=== PATIENT | female | born 1995 | race Caucasian/White ===

== ENCOUNTER → 2020-01-02 16:00 | Outpatient (BNVA) | payer MEDICAID, SELFPAY | PROVIDERS: Visit Provider Advanced Practice Midwife | DX: N94.10 Unspecified dyspareunia (principal) | CPT/HCPCS: 99203 ==

== ENCOUNTER 2020-01-02 19:24 | Outpatient (REF) | payer MEDICAID, SELFPAY ==
[2020-01-03 10:00] LABS: CT PCR NOT DETECTED (Not Detect.); NG PCR NOT DETECTED (Not Detect.)
[2020-01-03 12:34] LABS: BV Int Neg Control Negative (Negative); BV Int Pos Control Positive (Positive)
== END 2020-01-02 19:25 | disposition home or self-care (01) ==
LOC: HO.LNP 19:24
PROVIDERS: Visit Provider Advanced Practice Midwife
DX: N94.10 Unspecified dyspareunia (principal)
CPT/HCPCS: 87480; 87491; 87510; 87591; 87660

== ENCOUNTER 2020-01-13 16:26 | Outpatient (REF) | payer MEDICAID, SELFPAY ==
--- NOTE | 2020-01-13 16:30 | US_ITS ---
EXAMINATION: ULTRASOUND PELVIC, COMPLETE CLINICAL INFORMATION: Dyspareunia COMPARISON: None. TECHNIQUE: Transabdominal and transvaginal imaging was performed. Transvaginal imaging was performed for further evaluation of the endometrium and adnexa. FINDINGS: The uterus is of normal size and echogenicity measuring 6.4 x 3.1 x 4.3 cm and is retroverted A regular homogeneous endometrium is identified measuring 1.1 cm. Both ovaries are of normal size and echogenicity. The right ovary measures 3.5 x 2.4 x 3.3 cm for a volume of 14.5 mL. The left ovary measures 3.3 x 2 x 2 cm for a volume of 6.9 mL. There is no pelvic free fluid. IMPRESSION: Unremarkable pelvic ultrasound.
== END 2020-01-13 16:27 | disposition home or self-care (01) ==
LOC: HO.US 16:26
PROVIDERS: PCP Family Medicine; Visit Provider Advanced Practice Midwife
DX: N94.10 Unspecified dyspareunia (principal)
CPT/HCPCS: 76830; 76856

== ENCOUNTER → 2020-01-29 10:33 | Outpatient (BNVA) | payer MEDICAID, SELFPAY | PROVIDERS: PCP Family Medicine; Visit Provider Advanced Practice Midwife | DX: N94.10 Unspecified dyspareunia (principal); K80.80 Other cholelithiasis without obstruction; Z88.0 Allergy status to penicillin | CPT/HCPCS: 99212 ==

== ENCOUNTER 2020-03-11 18:19 | Emergency (ER) | payer MEDICAID, SELFPAY ==
--- NOTE | 2020-03-11 | XR_ITS ---
EXAMINATION: LEFT KNEE 3 VIEWS CLINICAL INFORMATION: Left knee pain. COMPARISON: None. TECHNIQUE: AP, lateral, oblique views of the left knee were obtained. FINDINGS: There are no fractures or dislocations. There is no knee joint effusion. There is no significant soft tissue swelling. XR/XR knee LT 4V IMPRESSION: Unremarkable left knee radiographs.
[2020-03-11 18:24] VITALS: BP 128/71; PULSE 90; RESP 16; TEMP 36.9; O2SAT 99; BMI 26.6
--- NOTE | 2020-03-11 19:50 | ED.EXTPRO ---
HPI - Extremity Problem General Chief complaint: Extremity Problem Stated complaint: knee pain Time Seen by Provider: 03/11/20 19:11 Source: patient Mode of arrival: ambulatory Limitations: no limitations History of Present Illness HPI Narrative: Left knee pain for the past couple weeks initially started after doing ADLs and question twist her knee got improved and came back again it with certain activities. States only hurts sometimes in the medial and lateral aspect of knee. She denies any lower extremity swelling, rash or any other injury. Location: left Radiation: distal Relieving factors: immobilization Exacerbating factors: walking and palpation Associated symptoms: denies other symptoms Related Data Previous Rx's Medication Instructions Recorded ibuprofen 800 mg PO Q8H PRN #15 tab 03/11/20 Allergies Allergy/AdvReac Type Severity Reaction Status Date / Time Penicillins [PENICILLINS] Allergy Intermediate TURNS RED Verified 01/29/20 10:28 PER PT MOM Review of Systems Review of Systems: Constitutional: No Weight loss, No Fever, No Chills, No Night Sweats, No Fatigue, No Malaise ENT/Mouth: No Hearing loss, No Ear Pain, No Nasal Congestion, No Sinus Pain, No Hoarseness, No sore throat, No Rhinorrhea, No Swallowing Difficulty Eyes: No Eye Pain, No Swelling, No Redness, No Foreign Body, No Discharge, No Vision Changes Cardiovascular: No Chest Pain, No SOB, No Dyspnea on Exertion, No Orthopnea, No Edema, No Palpitations Respiratory: No Cough, No Sputum, No Wheezing, No Smoke Exposure, No Dyspnea Gastrointestinal: No abdominal Pain Genitourinary: No Dysuria Musculoskeletal: No joint pain, No Myalgias, No Joint Swelling, n oteds in HPI Skin: No Skin Lesions, No rash Neuro: No Weakness, No Numbness, No Paresthesias, No Loss of Consciousness, No Dizziness, No Headache Psych:No Social Issues Heme/Lymph: No Bruising, No Bleeding,No Lymphadenopathy Endocrine: No Polyuria, No Polydipsia Yes all other systems are reviewed and are negative [facility] Past Medical History Medical History (Updated 03/12/20 @ 00:17 by Luis Eduardo Ventura) Dyspareunia in female Gall stones Surgical History Hx of abdominoplasty Social History Social History (Reviewed 01/29/20 @ 12:59 by NAYELI Dover Alcohol intake: never Smoking Status: Never smoker Smoked in Last 30 Days: No Substance Use Type: Marijuana Advance Directives: No Advance Directives Information Provided: Yes Gender identity: female Physical Exam Vital Signs: Vital Signs: Last Vital Signs Temp 98.2 F 03/11/20 19:51 Pulse 83 03/11/20 19:51 Resp 16 03/11/20 19:51 BP 116/70 03/11/20 19:51 Pulse Ox 97 03/11/20 19:51 Body Mass Index 26.6 Reviewed Const: General: cooperative and healthy appearing; No acute distress or intoxicated appearing Nutritional Appearance: average body habitus Orientation/consciousness: patient oriented x3 HENMT: Head: Yes normal to inspection Ears: hearing grossly normal bilaterally Chest: Chest palpation & inspection: normal inspection of the chest Resp: Effort & Inspection: normal respiratory effort Cardio: Jugular venous distension: no JVD : General: Yes no CVA tenderness Back/Spine/Pelvis: Back: no CVA tenderness Skin: General skin exam: no rashes or lesions noted Neuro: General: patient oriented x3 Extrem: General: Yes normal to inspection Right lower extremity: no edema Left lower extremity: normal to inspection, full ROM, normal capillary refill and knee (Slight him permission over the medial aspect of the knee. Negative squeeze) Details: normal to inspection and tenderness; no cyanosis, no edema and joint enlargement noted Discharge Plan Discharge Clinical Impression: Knee strain Patient Disposition: Home, Self-Care Instructions: Knee Sprain (ED) Additional Instructions: Ice, elevate, Lupillo wrap for comfort Follow-up as instructed Return if any concerns or worsening symptoms Thank you Prescriptions: New ibuprofen 800 mg tablet 800 mg PO Q8H PRN (Reason: pain) Qty: 15 RF: 0 Referrals: Maria L Galvez MD [Primary Care Provider] - 2 weeks Interventions: ED Discharge Assessment Last Done: 03/11/20 20:41 Discharge Date/Time: 03/11/20 20:42
[2020-03-11 19:51] VITALS: BP 116/70; PULSE 83; RESP 16; TEMP 36.8; O2SAT 97
== END 2020-03-11 20:42 | disposition home or self-care (01) ==
PROVIDERS: Emergency Provider Internal Medicine; PCP Family Medicine
DX: S86.912A Strain of unspecified muscle(s) and tendon(s) at lower leg level, left leg, initial encounter (principal); X50.1XXA Overexertion from prolonged static or awkward postures, initial encounter; Y93.9 Activity, unspecified; Y92.019 Unspecified place in single-family (private) house as the place of occurrence of the external cause; Y99.9 Unspecified external cause status
CPT/HCPCS: 73564; 99284

== ENCOUNTER 2021-10-13 10:05 | Outpatient (REF) | payer MEDICAID, SELFPAY ==
[2021-10-14 04:58] LABS: CT PCR NOT DETECTED (Not Detect.)
[2021-10-14 04:59] LABS: NG PCR NOT DETECTED (Not Detect.)
[2021-10-14 09:22] LABS: BV Int Neg Control Negative (Negative); BV Int Pos Control Positive (Positive)
== END 2021-10-13 10:06 | disposition home or self-care (01) ==
LOC: HO.LAB 10:05
PROVIDERS: Visit Provider Advanced Practice Midwife
DX: Z01.419 Encounter for gynecological examination (general) (routine) without abnormal findings (principal); Z11.3 Encounter for screening for infections with a predominantly sexual mode of transmission
CPT/HCPCS: 87480; 87491; 87510; 87591; 87660; 88142

== ENCOUNTER 2022-11-07 14:26 | Outpatient (REF) | payer MEDICAID, SELFPAY ==
[2022-11-07 16:16] LABS: MANUAL DIFF FLAG NO
[2022-11-07 16:21] LABS: Basophils Absolute Auto 0.1 X10*3/uL (0.0-0.2); Basophils Percent Auto 0.7 % (0-2); Eosinophils Percent Auto 0.4 % (0-4); Hematocrit 39.5 % (37.0-47.0); Hemoglobin 13.4 g/dl (12.0-16.0); Imm Gran Abs Auto 0.03 X10*3/uL (0.00-0.03); Imm Gran Pct Auto 0.4 % (0.0-0.4); Lymphocytes Absolute Auto 2.1 X10*3/uL (1.2-4.9); Lymphocytes Percent Auto 28.3 % (20-40); Mean Corpuscular HGB Conc 33.9 g/dl (31.0-35.0); Mean Corpuscular Hemoglobin 31.6 pg (27.0-33.0); Mean Corpuscular Volume 93.2 fL (80.0-98.0); Mean Platelet Volume 9.4 fL (9.4-12.3); Monocytes Absolute Auto 0.7 X10*3/uL (0.1-1.2); Neutrophils Absolute Auto 4.4 x10*3/uL (2.0-8.3); Neutrophils Percent Auto 61.2 % (45-73); Platelet Count 284 X10*3/uL (160-400); Red Blood Count 4.24 X10*6/uL (4.20-5.50); Red Cell Distribution Width 12.2 % (11.0-16.0); White Blood Count 7.3 X10*3/uL (4.8-10.8)
[2022-11-07 16:33] LABS: Estimated Average Glucose 85 mg/dL; Hemoglobin A1c % 4.6 %
[2022-11-07 16:59] LABS: Alanine Aminotransferase 17 U/L (0-31); Albumin Level 4.1 g/dL (3.5-5.0); Alkaline Phosphatase 60 U/L (39-117); Anion Gap 9 (12-20); Aspartate Amino Transferase 17 U/L (5-31); Bilirubin Total 0.5 mg/dL (0.0-1.0); Blood Urea Nitrogen 9 mg/dL (9-16); Calcium 9.5 mg/dL (8.4-10.2); Carbon Dioxide 26 mmol/L (22-29); Chloride 110 mmol/L (96-108); Estimated Glomerular Filt Rate > 60; Glucose Random 94 mg/dL (60-115); Potassium 3.9 mmol/L (3.3-5.1); Sodium 141 mmol/L (135-145); Total Protein 6.6 g/dL (6.5-8.0)
[2022-11-07 17:08] LABS: TSH reflex Free T4 1.39 uIU/mL (0.32-4.0); Vitamin D 25-OH Total 34.6 ng/mL (>30)
== END 2022-11-07 14:27 | disposition home or self-care (01) ==
LOC: HO.HHCL 14:26
PROVIDERS: Visit Provider Family Medicine
DX: E55.9 Vitamin D deficiency, unspecified (principal); Z83.3 Family history of diabetes mellitus
CPT/HCPCS: 36415; 80053; 82306; 83036; 84443; 85025

== ENCOUNTER 2023-07-06 16:03 | Outpatient (REF) | payer MEDICAID, SELFPAY ==
--- NOTE | ~2023-07-06 | XR_ITS ---
EXAMINATION: XR HAND, RIGHT CLINICAL INFORMATION: Right hand pain for a month COMPARISON: None available. TECHNIQUE: PA, lateral, and oblique views of the right hand. FINDINGS: The bones and soft tissues are normal. No fracture. Alignment is anatomic. Joint spaces are maintained. No erosions or soft tissue calcifications. XR/XR hand RT min 3V IMPRESSION: Normal right hand.
== END 2023-07-06 16:04 | disposition home or self-care (01) ==
LOC: HO.HHCX 16:03
PROVIDERS: Visit Provider General Practice
DX: M79.641 Pain in right hand (principal)
CPT/HCPCS: 73130

== ENCOUNTER 2024-01-07 08:39 | Outpatient (REF) | payer MEDICAID, SELFPAY ==
[2024-01-07 11:23] LABS: MANUAL DIFF FLAG NO
[2024-01-07 11:33] LABS: Basophils Percent Auto 0.5 % (0-2); Eosinophils Absolute Auto 0.1 X10*3/uL (0.0-0.4); Eosinophils Percent Auto 1.1 % (0-4); Hemoglobin 13.4 g/dl (12.0-16.0); Imm Gran Abs Auto 0.03 X10*3/uL (0.00-0.03); Imm Gran Pct Auto 0.4 % (0.0-0.4); Lymphocytes Absolute Auto 1.8 X10*3/uL (1.2-4.9); Lymphocytes Percent Auto 21.2 % (20-40); Mean Corpuscular HGB Conc 33.5 g/dl (31.0-35.0); Mean Corpuscular Hemoglobin 30.9 pg (27.0-33.0); Mean Corpuscular Volume 92.4 fL (80.0-98.0); Mean Platelet Volume 9.9 fL (9.4-12.3); Monocytes Absolute Auto 0.9 X10*3/uL (0.1-1.2); Neutrophils Absolute Auto 5.6 x10*3/uL (2.0-8.3); Neutrophils Percent Auto 65.8 % (45-73); Platelet Count 314 X10*3/uL (160-400); Red Blood Count 4.33 X10*6/uL (4.20-5.50); Red Cell Distribution Width 11.9 % (11.0-16.0); White Blood Count 8.5 X10*3/uL (4.8-10.8)
[2024-01-07 12:05] LABS: Alanine Aminotransferase 16 U/L (0-31); Albumin Level 4.3 g/dL (3.5-5.0); Alkaline Phosphatase 63 U/L (39-117); Anion Gap 10 (12-20); Aspartate Amino Transferase 17 U/L (5-31); Bilirubin Total 0.6 mg/dL (0.0-1.0); Blood Urea Nitrogen 11 mg/dL (9-16); Calcium 9.7 mg/dL (8.4-10.2); Carbon Dioxide 25 mmol/L (22-29); Chloride 108 mmol/L (96-108); Estimated Glomerular Filt Rate > 60; Ferritin 32 ng/mL (10-122); Glucose Random 90 mg/dL (60-115); Iron 152 mcg/dL (30-160); Percent Iron Saturation 52 % (15-50); Sodium 139 mmol/L (135-145); TSH reflex Free T4 1.47 uIU/mL (0.32-4.0); Total Iron Binding Capacity 290 mcg/dL (228-428); Total Protein 6.8 g/dL (6.5-8.0); Unsaturated Iron Binding 138 ug/dL
== END 2024-01-07 08:40 | disposition home or self-care (01) ==
LOC: HO.HHCL 08:39
PROVIDERS: Visit Provider Family Medicine
DX: K80.20 Calculus of gallbladder without cholecystitis without obstruction (principal); L65.9 Nonscarring hair loss, unspecified; E55.9 Vitamin D deficiency, unspecified
CPT/HCPCS: 36415; 80053; 82306; 82728; 83540; 84443; 85025

== ENCOUNTER 2024-01-16 09:26 | Outpatient (REF) | payer MEDICAID, SELFPAY ==
--- NOTE | ~2024-01-16 | US_ITS ---
EXAMINATION: US ABDOMEN COMPLETE CLINICAL INFORMATION: Cholelithiasis. COMPARISON: CT abdomen and pelvis 01/03/2019, ultrasound abdomen 01/22/2019. TECHNIQUE: Real-time imaging of the abdominal viscera. FINDINGS: PANCREAS: Normal. ABDOMINAL AORTA: The proximal, mid, and distal segments are normal in caliber. INFERIOR VENA CAVA: Visualized portions are normal. LIVER: Normal. The liver is normal in size. The liver contour is normal. Parenchymal echogenicity is normal. No focal hepatic lesion. There is no intrahepatic biliary duct dilatation seen. GALLBLADDER: The gallbladder is physiologically distended. Multiple mobile gallstones are present. No evidence of gallbladder wall thickening or pericholecystic fluid. COMMON BILE DUCT: Normal in caliber measuring 0.5 cm in diameter. RIGHT KIDNEY: Normal. No hydronephrosis. No renal calculi or focal parenchymal lesions. The kidney measures 10.6 cm in maximum dimension. LEFT KIDNEY: There is a 2 mm echogenic focus seen in the left mid kidney which was not noted previously. This does not shadow and has no twinkle artifact and is not typical of a stone. No hydronephrosis. No renal calculi or focal parenchymal lesions. The kidney measures 10.4 cm in maximum dimension. SPLEEN: Normal. The spleen measures 8.5 cm in maximum dimension. FREE FLUID: None. US/US abdomen complete IMPRESSION: 1. Cholelithiasis without evidence of cholecystitis. 2. A 2 mm echogenic focus left mid kidney. This is not typical of a stone and is probably of no significance. Electronically signed by: Chris Wright MD 02/21/2024 02:02 PM [facility]
== END 2024-01-16 09:27 | disposition home or self-care (01) ==
LOC: HO.US 09:26
PROVIDERS: PCP Family Medicine; Visit Provider Family Medicine
DX: K80.20 Calculus of gallbladder without cholecystitis without obstruction (principal)
CPT/HCPCS: 76700

== ENCOUNTER 2025-03-02 15:58 | Outpatient (REF) | payer MEDICAID, SELFPAY ==
--- OUTSIDE RECORDS SUMMARY | 2025-03-02 18:37 | XMS_ITS | Encounter Summary ---
Author Organization [employer] Address [address] [facility] [address] [place] [address] Care Team Providers Care Reinforcing Steel Machine Operator Name Role Phone Maria L Galvez MD Primary Care Provider [phone] Reason for Visit * Reason Onset Date Comments Nurse Triage 11/13/2023 Encounter Details Date Type Department Care Team (Late st Contact Info) Description 11/13/2023 Telephone [facility] [address] [place], [place] [phone] Maria L Galvez MD [address] [place], [place] [phone] Nurse Triage Social History Tobacco Use Types Packs/Day Years Used Date Smoking Tobacco: Never Smokeless Tobacco: Never Alcohol Use Standard Drinks/Week Comments Never 0 (1 standard drink = 0.6 oz pur e alcohol) Depression Answer Date Recorded Patient Health Questionnaire-9 Score 0 11/07/2022 Housing Stability Answer Date Recorded What is your housing situation today? I have elyssajake millan 02/05/[address] you li ve. Do you have problems with any of the following? None of the above 02/05/2023 Food Insecurity Answer Date Recorded Within the past 12 months, y ou worried that your food would run out before you got money to buy more: Never True 02/05/2023 Within the past 12 months,th e food you bought just didn't last and you didn't have enough money to get more: Never True 08/2022 Transportation Answer Date Recorded In the past 12 months, has l ack of transportation kept you from medical appts, meetings, work or from getting things needed for daily living? No 02/05/2023 Utilities Answer Date Recorded In the past 12 months, has t he electric, gas, oil or water company threatened to shut off services in your home? No 02/05/2023 Depression Answer Date Recorded Patient Health Questionnaire-2 Score 0 11/07/2022 Comments Unknown Sex and Gender Information Value Date Recorded Sex Assigned at Female 01/30/2022 10:22 AM EDT Legal Sex Female 10:22 AM EDT Gender Identity Female 01/30/2022 10:22 AM EDT Sexual Orientation Choose not to disclose 2021 10:22 AM EDT documented as of this encounter Miscellaneous Notes * Telephone Encounter - Belem Hope RN - 11/13/2023 10:17 AM EDT Called pt. She states that she has been trying to get an appt. To check her eyesight. Pt. States that at 4am this am her eyes are hurting and it hurts to blink her eyes. Pt woke up this am and eyes are feeling fine at present. Pt states that this episode of eye pain in both eyes has happened 3-4 times over the past month. Pt. States she had PRK surgery in 2022. Pt. States she needs an eye exam. Pain in eyes when she blinks. Pt. States her eyes hurt so bad in the mornings and feels like a stabbing pain. Pt. States she feels like something has popped in her eyes. No foreign objects. Pt. States that she called her insurance company and then called the places that they suggested and they have no openings. PCP did refer pt. To Ophthalmology on 09/17/23. Pt. States that she did call [facility] but they are not accepting new pt's. Pt. States she is on waiting list for [facility] eye care but she is having eye problems right now and is requesting to be seen sooner from [facility] eye care. Please call pt. From [facility] eye care to let her know where she is on waiting list for eye exam and if she can get sooner appt. Due to eye pain on and off. * Telephone Encounter - Rosaliegabriel Cohen Mary - 11/13/2023 10:02 AM EDT Symptom: Eye Pain - Not From Injury Outcome: Schedule an urgent appointment (within 4 hours) or talk to a nurse or provider soon Reason: Getting worse The caller accepted this outcome Please contact pt @ [phone] documented in this encounter Plan of Treatment Upcoming Encounters Date Type Department Care Team (Late st Contact Info) Description 03/19/2025 10:30 AM EST Office Visit [facility] [address] [place], [place] [phone] Maria L Galvez MD [address] [place], [place] [phone] documented as of this encounter Visit Diagnoses Not on filedocumented in this encounter Additional Health Concerns Assessment Noted Time PHQ-9 Depression Total Score: 0 11/08/19 23 1:42 PM EDT documented as of this encounter Care Teams Reinforcing Steel Machine Operator Relationship Specialty Start Date End Date Maria L Galvez MD [address] [place] [phone] PCP - General Family Medicine 07/05/11 documented as of this encounter
--- OUTSIDE RECORDS SUMMARY | 2025-03-02 18:37 | XMS_ITS | Encounter Summary ---
Author Organization [employer] Address [address] [facility] [address] [place] [address] Care Team Providers Care Core Composer Machine Tender Name Role Phone Maria L Galvez MD Primary Care Provider [phone] Reason for Visit * Reason Onset Date Comments r/s appt 03/21/2023 Encounter Details Date Type Department Care Team (Late st Contact Info) Description 03/21/2023 Telephone [facility] [address] [place], [place] [phone] Maria L Galvez MD [address] [place], [place] [phone] r/s appt Social History Tobacco Use Types Packs/Day Years [...] encounter Miscellaneous Notes * Telephone Encounter - Andrez Babb - 03/21/2023 2:45 PM EST TC from pt calling to R/S appt from 03/22( wt. check, tweak meal plan possible). PCP Dr. Galvez documented in this encounter Plan of Treatment Upcoming Encounters Date Type Department Care Team (Late st Contact Info) Description 03/19/2025 10:30 AM EST Office Visit [facility] [address] [place] [address] Maria L Galvez MD [address] [place] [phone] documented as of this encounter Visit Diagnoses Not on filedocumented in this encounter Additional Health Concerns Assessment Noted Time PHQ-9 Depression Total Score: 0 11/08/19 23 1:42 PM EDT documented as of this encounter Care Teams Core Composer Machine Tender Relationship Specialty Start Date End Date Maria L Galvez MD [address] [place] [phone] PCP - General Family Medicine 07/05/11 documented as of this encounter
--- OUTSIDE RECORDS SUMMARY | 2025-03-02 18:37 | XMS_ITS | Encounter Summary ---
Author Organization [employer] Address [address] [facility] [address] [place] [address] Care Team Providers Care Solid Waste Manager Name Role Phone Maria L Galvez MD Primary Care Provider [phone] Encounter Details Date Type Department Care Team (Late st Contact Info) Description 09/29/2022 Abstract [facility] [address] [place] [address] [phone] Maria L Galvez MD [address] [place] [address] [phone] Social History Tobacco Use Types Packs/Day Years Used Date Smoking Tobacco: Never Assessed Comments Unknown Sex and Gender Information Value Date Recorded Sex Assigned at Female 01/30/2022 10:22 AM EDT Legal Sex Female 10:22 AM EDT Gender Identity Female 01/30/2022 10:22 AM EDT Sexual Orientation Choose not to disclose 2021 10:22 AM EDT documented as of this encounter Plan of Treatment Upcoming Encounters Date Type Department Care Team (Late st Contact Info) Description 03/19/2025 10:30 AM EST Office Visit [facility] [address] [place] [phone] Maria L Galvez MD [address] [place] [address] [phone] documented as of this encounter Procedures Procedure Name Priority Date/Time Associated Diagnosis Comments PAP/HPV Routine 10/13/2021 documented in this encounter Results * Hm Pap Smear (10/13/2021) Pap Negative for intraephithelial lesion or malignancy Negative for intraephithelial lesion or malignancy, Other 10/13/2021 [facility] External Provider HEALTH MAINTENANCE Final Result documented in this encounter Visit Diagnoses Not on filedocumented in this encounter Care Teams Solid Waste Manager Relationship Specialty Start Date End Date Maria L Galvez MD [address] [place] [phone] PCP - General Family Medicine 07/05/11 documented as of this encounter
--- OUTSIDE RECORDS SUMMARY | 2025-03-02 18:37 | XMS_ITS | Clinical Summary ---
Author Organization [employer] Address [address] [place] [address] Care Team Providers Care Tree Expert Name Role Phone Maria L Galvez MD Primary Care Provider [phone] Allergies Active Allergy Reactions Criticality Noted Date Comments Penicillin G Anaphylaxis High 12/07/2023 Medications clindamycin (Cleocin T) 1 % lotion APPLY TO FACE AND BACK TWICE DAILY AFTER WASHING WITH benzoyl peroxide. 3 Active triamcinolone (Nasacort) 55 MCG/ACT nasal inhaler SPRAY 2 SPRAYS IN EACH NOSTRIL EVERY DAY 3 Active Ibuprofen capsule TAKE 4 CAPSULES BY MOUTH EVERY 6 HOURS. MAXIMUM DAILY DOSE IS 16 CAPSULE PER DAILY 4 Active ketoconazole (NIZOral) 2 % shampoo APPLY TO SCALP AND LEAVE ON FOR 5 MINUTES THEN RINSE OFF TWICE A WEEK 4 Active Deep Sea Nasal [place] 0.65 % nasal spray SPRAY 2 SPRAYS IN EACH NOSTRIL 4 TO 6 TIMES DAILY 4 Active Menthol-Methyl Salicylate (Muscle Rub) 10-15 % creamIndication s:Neck muscle spasm Apply 1 Application topically in the morning. 85 g 1 4 Active drospirenone-et hinyl estradiol (Macy, Gianvi) 3-0.02 MG tablet Take 1 tablet by mouth Once per day. 4 Active white petrolatum-mine ral oil (Lacri-Lube) ointment ophthalmic ointment Apply a small amount to both eyes at bedtime 3.5 g 11 4 Active cholecalciferol (Vitamin D-3) 25 MCG tablet TAKE 1 TABLET BY MOUTH EVERY DAY 90 tablet 3 5 Active Ascorbic Acid (vitamin C) 500 MG tablet TAKE 2 TABLETS BY MOUTH ONCE DAILY IN THE MORNING 180 tablet 1 02/23/2025 4:49 PM EST 5 Active triamcinolone (Kenalog) 0.1 % ointment Apply topically 2 times daily. 80 g 1 03/02/2025 4:32 PM EST 5 Active predniSONE (Deltasone) 20 MG tablet Take 2 tablets (40 mg) by mouth Once per day for 3 days. 6 tablet 03/02/2025 4:32 PM EST 5 03/08/20 25 Active loratadine (Claritin) 10 MG tablet Take 1 tablet (10 mg) by mouth Once per day. 90 tablet 3 03/02/2025 4:32 PM EST 5 Active Active Problems Problem Noted Date Diagnosed Date Pruritus 02/23/2025 Assessment & Plan (02/23/2025 5:35 PM EST): - patient states pruritus started first - check bile acid / cholestatic pruritus - restart antihistamine daily - short course of prednisone - avoid scratching / use distraction technique Rash 02/23/2025 Assessment & Plan (02/23/2025 5:34 PM EST): - it seems like pruritus came first - avoid scratching / irritation - 3 days of prednisone due to severe symptoms and rash - apply triamcinolone cream; consider higher potency if inadequate response - use hypoallergenic skin care / cleaning / laundry products - refer to material specialist Hypersensitivity 02/23/2025 Assessment & Plan (02/23/2025 5:37 PM EST): - unknown trigger - RAST for basic panel, and cat - refer to material specialist - short course of systemic steroid - restart antihistamine Hair loss 01/04/2024 Shoulder pain 12/25/2023 Assessment & Plan (12/25/2023 11:45 AM EDT): - patient was referred to PT but has not started - given contact information for PT so that patient can call and schedule Upper back pain 12/25/2023 Assessment & Plan (12/25/2023 11:46 AM EDT): - patient was referred to PT but has not started - given contact information for PT so that patient can call and schedule Vitamin D deficiency 11/10/2022 Assessment & Plan (12/25/2023 11:43 AM EDT): - continue vitamin D supplement and periodic lab Assessment & Plan (11/10/2022 6:59 AM EDT): - continue vitamin D supplement and periodic lab Cholelithiasis 11/10/2022 Assessment & Plan (02/23/2025 5:40 PM EST): - seen by [facility] surgery provider for elective cholecystectomy - scheduled in June 2019, but cancelled due to COVID - has been asymptomatic, currently having pruritus. Will check if related to cholestasis. - will update US Assessment & Plan (12/25/2023 11:43 AM EDT): - seen by [facility] surgery provider for elective cholecystectomy - scheduled in June 2019, but cancelled due to COVID - asymptomatic currently - will update US Assessment & Plan (11/10/2022 7:00 AM EDT): - seen by [facility] surgery provider for elective cholecystectomy - scheduled in June 2019, but cancelled due to COVID - asymptomatic currently - monitoring at this time Overweight 11/09/2022 Acne vulgaris 11/09/2022 Assessment & Plan (12/25/2023 11:44 AM EDT): - seeing Dr. Moon, Society Editor - currently prescribed clindamycin topical and doxycycline oral - continue current treatment plan Assessment & Plan (11/10/2022 7:05 AM EDT): - seeing Dr. Moon, Society Editor - currently prescribed clindamycin topical and doxycycline oral - continue current treatment plan - I don't see any lesion, but pt is dissatisfied. Allergic rhinitis 09/14/2016 Assessment & Plan (12/25/2023 11:44 AM EDT): - continue triamcinolone nasal - recently evaluated by ENT, patient states that she had procedure for her nose, possibly polyp removal, will obtain record Assessment & Plan (11/10/2022 7:04 AM EDT): - continue triamcinolone nasal Encounters Date Type Department Care Team Description 02/23/2025 3:15 PM EST Office Visit [facility] [address] [place], [place] [phone] Maria L Galvez MD Pruritus (Primary Dx); Calculus of gallbladder without cholecystitis without obstruction; Rash; Hypersensitivity, initial encounter 02/23/2025 Travel 02/19/2025 Telephone [facility] [address] [place], [place] [phone] Maria L Galvez MD Nurse Triage 01/22/2025 Refill [facility] [address] [place] [address] Maria L Galvez MD from Last 3 Months Immunizations Immunization Administration Dates Next Due DTaP 11/09/2006, 0,01/24/1997,06/17,03/27/1996,1995 HPV, Quadrivalent 01/22/2013,05/16/2010 Hep A, Adult 07/04/2018 Hep A, ped/adol, 2 dose 05/16/2010 Hep B, Adolescent or Pediatric 01/25/1999,1995,1995 Hep B, adult 01/11/2016,10/15/2015 Hib (HbOC) 01/25/1999,03/27/1996,1995 IPV 10/13/1999, 7,01/26/1996,12/04 Influenza injectable quadriv alent IIV4 with preservative 12/17/2018,03/21/2017 Influenza injectable quadriv alent preservative free 12/13/2021 Influenza, Split (incl. elda fied surface antigen) 01/22/2013,12/13/2011 Influenza, seasonal, injecta ble, preservative free 12/25/2023 MMR 01/24/1997,10/12/1996 Meningococcal MCV4P ACYW-135 07/04/2018,05/16/19 11 Pfizer Covid-19 Vaccine 12+ Bivalent 04/28/2022 Tdap 11/07/2022,01/22/2013 Varicella 01/22/2013,05/16/2010 Family History Medical History Relation Name Comments Diabetes type II Sister Relation Name Status Comments Sister Social History Tobacco Use Types Packs/Day Years Used Date Smoking Tobacco: Never Smokeless Tobacco: Never Tobacco Cessation:Counseling Given: Not Answered Alcohol Use Standard Drinks/Week Comments Never 0 (1 standard drink = 0.6 oz pur e alcohol) Alcohol Answer Date Recorded Frequency of Alcohol Consumption Not on file 12/25/2023 Average Number of Drinks Not on file 024 Frequency of Binge Drinking Not on file 12/02 Score 0 12/25/2023 Depression Answer Date Recorded Patient Health Questionnaire-9 Score 0 12/25/2023 Patient Health Questionnaire-9 Score 0 12/25/2023 Last PHQ-9: Questionnaire Data Not on file 0 12/25/2023 Housing Stability Answer Date Recorded What is your housing situation today? I have elyssa millan 12/25/[address] you li ve. Do you have problems with any of the following? None of the above 12/25/2023 Food Insecurity Answer Date Recorded Within the past 12 months, y ou worried that your food would run out before you got money to buy more: Never True 12/25/2023 Within the past 12 months,th e food you bought just didn't last and you didn't have enough money to get more: Not on file Transportation Answer Date Recorded In the past 12 months, has l ack of transportation kept you from medical appts, meetings, work or from getting things needed for daily living? No 12/25/2023 Utilities Answer Date Recorded In the past 12 months, has t he electric, gas, oil or water company threatened to shut off services in your home? No 12/25/2023 Depression Answer Date Recorded Patient Health Questionnaire-2 Score 0 12/25/2023 Internet Access Answer Date Recorded Internet Access Q1 Yes 12/25/2023 Internet Access Q2 Not on file 12/25/2023 Comments Unknown Sex and Gender Information Value Date Recorded Sex Assigned at Female 01/30/2022 10:22 AM EDT Legal Sex Female 10:22 AM EDT Gender Identity Female 01/30/2022 10:22 AM EDT Sexual Orientation Choose not to disclose 2021 10:22 AM EDT Last Filed Vital Signs Vital Sign Reading Time Taken Comments Blood Pressure 110/60 02/23/2025 3:51 PM EST Pulse 103 02/23/2025 3:51 PM EST Temperature 37 C (98.6 F) 02/23/2025 3:51 PM EST Respiratory Rate 15 02/23/2025 3:51 PM EST Oxygen Saturation 97% 02/23/2025 3:51 PM EST Inhaled Oxygen Concentration - - Weight 73.2 kg (161 lb 6.4 oz) 02/23/2025 3:51 P M EST Height 167.3 cm (5' 5.86 ) 02/23/2025 3:51 PM ES T Body Mass Index 26.16 02/23/2025 3:51 PM EST Plan of Treatment Upcoming Encounters Date Type Department Care Team (Late st Contact Info) Description 03/19/2025 10:30 AM EST Office Visit [facility] MEDICINE [address] [place] [address] Maria L Galvez MD [address] [place] [address] Health Maintenance Due Date Last Done Comments Disability Screening 1995 Alcohol/Substance Use Screening 2007 Family Planning (PISQ) 09/29/2010 SDOH Screening 11/08/2023 11/07/2022 Pap Smear 10/13/2024 10/13/2021 COVID-19 Vaccine ( season) 2024 04/28/2022, 08/30/2021, 08/08/2021 Influenza Vaccine (#1) 2024 , 12/13/2021, 12/17/2018, Additional history exists Depression Screening 12/24/2024 12/25/2023, 12/25/19 24 Tobacco Screening 05/13/2025 05/13/2024 DTaP/Tdap/Td Vaccines (9 - Td or Tdap) 11/07/2032 11/07/2022, 01/22/2013, 11/09/2006, Additional history exists Zoster Vaccines (1 of 2) 09/29/2045 RSV Patients and Patients Aged 60 years or older (1 - 1-dose 75+ series) 09/29/2070 HIB Vaccines Completed 01/25/1999, 03/03, 1995 IPV Vaccines Completed 10/13/1999, 12/01, 01/26/1996, Additional history exists HPV Vaccines Completed 01/22/2013, 05/16/2010 Hepatitis B Vaccines Completed 01/11/2016, 10/15/2015, 01/25/1999, Additional history exists Hepatitis A Vaccines Completed 07/04/2018, 05/16/19 11 Meningococcal Vaccine Aged Out 07/04/2018, 011 No longer eligible based on patient's age to complete this topic HIV Screening Completed 06/16/2020, 04/23/2019 Hepatitis C Screening Completed 06/16/2020, 020 Meningococcal B Vaccine Aged Out No l onger eligible based on patient's age to complete this topic Pneumococcal Vaccine: Pediatrics (0 to 5 Years) and At-Risk Patients (6 to 49) Years Aged Out No longer eligible based on patient's age to complete this topic RSV under 20 months Aged Out No longe r eligible based on patient's age to complete this topic Rotavirus Vaccines Aged Out No longer eligible based on patient's age to complete this topic Procedures Procedure Name Priority Date/Time Associated Diagnosis Comments HM PAP/HPV Routine 10/13/2021 [facility] HISTORICAL HEPATITIS C AB W/REFL TO HCV RNA, QN, PCR Routine 06/16/2020 2:37 PM EDT HIV 1/2 ANTIGEN/ANTIBODY, FOURTH GENERATION W/RFL Routine 06/16/2020 2:37 PM EDT from Last 3 Months or Most Recently Relevant to Health Maintenance Results * Hm Pap Smear (10/13/2021) Pap Negative for intraephithelial lesion or malignancy Negative for intraephithelial lesion or malignancy, Other 10/13/2021 [facility] External Provider HEALTH MAINTENANCE Final Result * HEPATITIS C AB W/REFL TO HCV RNA, QN, PCR (06/16/2020 2:37 PM EDT) HEPATITIS C ANTIBODY NON-REACT MARYLOU NON-REACT MARYLOU [facility] INDEX 0.02 <1.00 [facility] Comment: HCV antibody was non-reactive. There is no laboratory evidence of HCV infection. In most cases, no further action is required. However, if recent HCV exposure is suspected, a test for HCV RNA (test code 34662) is suggested. For additional information please refer to http://[employer]/faq/BZR39r8 (This link is being provided for informational/ educational purposes only.) 06/16/2020 2:37 PM EDT Maria L Galvez MD HISTORICAL/NON ORDERABLE LABS Fi nal Result [facility] [address] * HIV 1/2 ANTIGEN/ANTIBODY,FOURTH GENERATION W/RFL (06/16/2020 2:37 PM EDT) HIV-1/2 ANTIGEN AND ANTIBODIES, 4TH GENERATION W/ REFLEX NON-REACT MARYLOU NON-REACT MARYLOU [facility] Comment: HIV-1 antigen and HIV-1/HIV-2 antibodies were not detected. There is no laboratory evidence of HIV infection. PLEASE NOTE: This information has been disclosed to you from records whose confidentiality may be protected by state law. If your state requires such protection, then the state law prohibits you from making any further disclosure of the information without the specific written consent of the person to whom it pertains, or as otherwise permitted by law. A general authorization for the release of medical or other information is NOT sufficient for this purpose. For additional information please refer to http://[employer]/faq/WLV125 (This link is being provided for informational/ educational purposes only.) The performance of this assay has not been clinically validated in patients less than 2 years old. 06/16/2020 2:37 PM EDT us Maria L Galvez MD LAB BLOOD ORDERABLES Final Resul t [facility] [address] [place] [address], from Last 3 Months or Most Recently Relevant to Health Maintenance Insurance [employer] Care Teams Tree Expert Relationship Specialty Start Date End Date Maria L Galvez MD [address] [place] [phone] PCP - General Family Medicine 07/05/11
--- OUTSIDE RECORDS SUMMARY | 2025-03-02 18:37 | XMS_ITS | Encounter Summary ---
Author Organization [employer] Address [address] [facility] 7t [place] [address] Care Team Providers Care Aircraft Engine Mechanic Overhaul Name Role Phone Maria L Galvez MD Primary Care Provider [phone] Reason for Referral * Consultation (Routine) - Closed Specialty Diagnoses / Procedures Referred By Fabiana tripathi Referred To Contact General Surgery Diagnoses Calculus of gallbladder without cholecystitis without obstruction Maria L Galvez MD [address] [place] [address] Phone: tel: fax: [facility] General Surgery [address] [place] [phone] Phone: tel: fax: Referral ID Status Reason Start Date Expiration Date V isits Requested Visits Authorized [id number] Closed Specialty Services Required 04/04/2024 04/04/2025 12 12 Encounter Details Date Type Department Care Team (Late st Contact Info) Description 04/04/2024 Orders Only [facility] MEDICINE [address] [place] [address] [phone] Maria L Galvez MD [address] [place] [phone] Calculus of gallbladder without cholecystitis without obstruction (Primary Dx) Social History Tobacco Use Types Packs/Day Years [...] Description 03/19/2025 10:30 AM EST Office Visit [facility] [address] [place] [address] Maria L Galvez MD [address] [place], [place] [phone] Scheduled Referrals Name Type Priority Associated Diagnoses Orde r Schedule Referral to General Surgery Outpatient Referral Routine Calculus of gallbladder without cholecystitis without obstruction Expected: 04/04/2024 (Approximate), Expires: 04/04/2025 documented as of this encounter Visit Diagnoses Diagnosis Calculus of gallbladder without cholecystitis without obstruction- Primary documented in this encounter Additional Health Concerns Assessment Noted Time PHQ-9 Depression Total Score: 0 12/25/19 24 11:10 AM EDT documented as of this encounter Care Teams Aircraft Engine Mechanic Overhaul Relationship Specialty Start Date End Date Maria L Galvez MD [address] [place] [address] PCP - General Family Medicine 07/05/11 documented as of this encounter
--- OUTSIDE RECORDS SUMMARY | 2025-03-02 18:37 | XMS_ITS | Encounter Summary ---
Author Organization [employer] Address [address] [facility] 7t [place] [address] Care Team Providers Care Perforator Name Role Phone Maria L Galvez MD Primary Care Provider [phone] Reason for Referral * Consultation (Routine) - Closed Specialty Diagnoses / Procedures Referred By Fabiana tripathi Referred To Contact Ophthalmology Diagnoses Visual impairment Maria L Galvez MD [address] [place] [address] Phone: tel: fax: Referral ID Status Reason Start Date Expiration Date V isits Requested Visits Authorized [id number] Closed Specialty Services Required 09/17/2023 09/16/2024 1 1 Encounter Details Date Type Department Care Team (Late st Contact Info) Description 09/17/2023 Orders Only [facility] [address] [place], [place] [phone] Maria L Galvez MD [address] [place], [place] [phone] Visual impairment (Primary Dx) Social History Tobacco Use Types Packs/Day Years Used Date Smoking Tobacco: Never Smokeless Tobacco: Never Alcohol Use Standard Drinks/Week Comments Never 0 (1 standard drink = 0.6 oz pur e alcohol) Depression Answer Date Recorded Patient Health Questionnaire-9 Score 0 11/07/2022 Housing Stability Answer Date Recorded What is your housing situation today? I have elyssa millan 02/05/[address] you [...] Description 03/19/2025 10:30 AM EST Office Visit [facility] MED[facility]INE [address] [place] [phone] Maria L Galvez MD [address] [place] [address] Scheduled Referrals Name Type Priority Associated Diagnoses Order Schedule Referral to Ophthalmology Outpatient Referral Routine Visual impairment Expected: 09/17/2023 (Approximate), Expires: 09/16/2024 documented as of this encounter Visit Diagnoses Diagnosis Visual impairment- Primary Unspecified visual loss documented in this encounter Additional Health Concerns Assessment Noted Time PHQ-9 Depression Total Score: 0 11/08/19 23 1:42 PM EDT documented as of this encounter Care Teams Perforator Relationship Specialty Start Date End Date Maria L Galvez MD [address] [place] [address] PCP - General Family Medicine 07/05/11 documented as of this encounter
--- OUTSIDE RECORDS SUMMARY | 2025-03-02 18:37 | XMS_ITS | Encounter Summary ---
Author Organization [employer] Address [address] 7[address] [place] [address] Care Team Providers Care Pediatric Cns Name Role Phone Maria L Galvez MD Primary Care Provider [phone] Encounter Details Date Type Department Care Team (Late st Contact Info) Description 11/13/2023 Orders Only [facility] [address] [place], [place] [phone] Maria L Galvez MD [address] [place], [place] [phone] Poor vision (Primary Dx) Social History Tobacco Use Types [...] Description 03/19/2025 10:30 AM EST Office Visit [facility] [address] [place] [phone] Maria L Galvez MD [address] [place] [phone] documented as of this encounter Visit Diagnoses Diagnosis Poor vision- Primary Unspecified visual loss documented in this encounter Additional Health Concerns Assessment Noted Time PHQ-9 Depression Total Score: 0 11/08/19 23 1:42 PM EDT documented as of this encounter Care Teams Pediatric Cns Relationship Specialty Start Date End Date Maria L Galvez MD [address] [place] [phone] PCP - General Family Medicine 07/05/11 documented as of this encounter
--- OUTSIDE RECORDS SUMMARY | 2025-03-02 18:37 | XMS_ITS | Encounter Summary ---
Author Organization [employer] Address [address] [facility] 7t [place] [address] Care Team Providers Care Supply Requirements Officer Name Role Phone Maria L Galvez MD Primary Care Provider [phone] Reason for Referral * Consultation (Routine) - Closed Specialty Diagnoses / Procedures Referred By aFbiana tripathi Referred To Contact Nutrition Diagnoses Overweight Maria L Galvez MD [address] [place] [address] Phone: tel: fax: Referral ID Status Reason Start Date Expiration Date V isits Requested Visits Authorized [id number] Closed Consult and Treat 01/21/2024 01/20/2025 1 1 Encounter Details Date Type Department Care Team (Late st Contact Info) Description 01/21/2024 Orders Only [facility] [address] [place], [place] [phone] Maria L Galvez MD [address] [place], [place] [phone] Overweight (Primary Dx) Social History Tobacco Use Types [...] Upcoming Encounters Date Type Department Care Team ([facility] st Contact Info) Description 03/19/2025 10:30 AM EST Office Visit [facility] [address] [place] [address] Maria L Galvez MD [address] [place] [address] Scheduled Referrals Name Type Priority Associated Diagnoses Orde r Schedule Referral to Nutrition Therapy Outpatient Referral Routine Overweight Expected: 01/21/2024 (Approximate), Expires: 01/20/2025 documented as of this encounter Visit Diagnoses Diagnosis Overweight- Primary documented in this encounter Additional Health Concerns Assessment Noted Time PHQ-9 Depression Total Score: 0 12/25/19 11:10 AM EDT documented as of this encounter Care Teams Supply Requirements Officer Relationship Specialty Start Date End Date Maria L Galvez MD [address] [place] [address] PCP - General Family Medicine 07/05/11 documented as of this encounter
--- OUTSIDE RECORDS SUMMARY | 2025-03-02 18:37 | XMS_ITS | Encounter Summary ---
Author Organization [employer] Address [address] [facility] 7t [place] [address] Care Team Providers Care Electro Mechanical Engineer Name Role Phone Maria L Galvez MD Primary Care Provider [phone] Reason for Visit * Reason Onset Date Comments Appointment Request 09/23/2024 Encounter Details Date Type Department Care Team ([facility] st Contact Info) Description 09/23/2024 Telephone [facility] MEDICINE [address] [place], [place] [phone] Maria L Galvez MD [address] [place], [place] [phone] Appointment Request Social History Tobacco Use Types Packs/Day Years [...] * Telephone Encounter - Andrez Babb - 09/23/2024 9:07 AM EDT Tc from pt requesting call back to reschedule nutrition appt. Please contact pt at [phone]. (Somali Speaker) documented in this encounter Plan of Treatment Upcoming Encounters Date Type Department Care Team (Late st Contact Info) Description 03/19/2025 10:30 AM EST Office Visit [facility] [address] [place] [address] Maria L Galvez MD [address] [place] [address] documented as of this encounter Visit Diagnoses Not on filedocumented in this encounter Additional Health Concerns Assessment Noted Time PHQ-9 Depression Total Score: 0 12/25/19 11:10 AM EDT documented as of this encounter Care Teams Electro Mechanical Engineer Relationship Specialty Start Date End Date Maria L Galvez MD [address] [place] [address] PCP - General Family Medicine 07/05/11 documented as of this encounter
[2025-03-02 19:49] LABS: Alanine Aminotransferase 17 U/L (0-31); Albumin Level 4.5 g/dL (3.5-5.0); Alkaline Phosphatase 68 U/L (39-117); Anion Gap 9 (12-20); Aspartate Amino Transferase 22 U/L (5-31); Blood Urea Nitrogen 10 mg/dL (9-16); Calcium 9.1 mg/dL (8.4-10.2); Carbon Dioxide 27 mmol/L (22-29); Chloride 109 mmol/L (96-108); Estimated Glomerular Filt Rate > 60; Potassium 3.6 mmol/L (3.3-5.1); Sodium 141 mmol/L (135-145); Total Protein 6.9 g/dL (6.5-8.0)
[2025-03-02 19:56] LABS: MANUAL DIFF FLAG NO
[2025-03-02 20:17] LABS: Hematocrit 35.6 % (37.0-47.0); Hemoglobin 12.0 g/dl (12.0-16.0); Imm Gran Abs Auto 0.02 X10*3/uL (0.00-0.03); Imm Gran Pct Auto 0.3 % (0.0-0.4); Lymphocytes Absolute Auto 2.4 X10*3/uL (1.2-4.9); Mean Corpuscular HGB Conc 33.7 g/dl (31.0-35.0); Mean Corpuscular Hemoglobin 31.3 pg (27.0-33.0); Mean Corpuscular Volume 93.0 fL (80.0-98.0); NRBC Abs Auto 0.000 X10*3/uL (0.0-0.012); NRBC Pct Auto 0.0 /100WBC (0.0-0.2); Platelet Count 247 X10*3/uL (160-400); Red Blood Count 3.83 X10*6/uL (4.20-5.50); White Blood Count 6.2 X10*3/uL (4.8-10.8)
[2025-03-04 19:48] LABS: Class Almond 0; Class Brazil Nut 0; Class Cashew 0; Class Codfish 0; Class Cow's Milk 0; Class Egg white 0; Class Hazelnut 0; Class Macadamia Nut 0; Class Peanut 0; Class Salmon 0; Class Scallop 0; Class Sesame Seed 0; Class Shrimp 0; Class Soybean 0; Class Tuna 0; Class Walnut 0; Class Wheat 0; F345-IgE Macadmia Nut <0.10 kU/L
== END 2025-03-02 15:59 | disposition home or self-care (01) ==
LOC: HO.HHCL 15:58
PROVIDERS: PCP Family Medicine; Visit Provider Family Medicine
DX: Z01.84 Encounter for antibody response examination (principal); L29.9 Pruritus, unspecified
CPT/HCPCS: 36415; 80048; 80076; 85025; 86003